=== PATIENT | male | born 1985 | race African-American/Black ===

== ENCOUNTER 2019-11-27 18:30 | Emergency (ER) | payer OTHER ==
--- NOTE | 2019-11-27 19:51 | ER Document Report ---
ED Medical Screen (RME) - General Chief Complaint: Leg Pain Stated Complaint: LEG PAIN Time Seen by Provider: 11/27/19 19:46 - HPI Notes: 11/27/19 19:50 Patient is a 34-year-old male who presents complaining of right calf pain prior to arrival. Patient states he was walking down the steps when he felt a pop in his leg and had immediate pain. He has been noticing some increased swelling. No twist injury otherwise. Denies drug allergies. Patient does not want any medicines at this time. I have treated and performed a rapid initial assessment of this patient. A comprehensive ED assessment and evaluation of the patient, analysis of test results and completion of medical decision making process will be conducted by additional ED providers. PHYSICAL EXAMINATION: GENERAL: Well-appearing, well-nourished and in no acute distress. A&Ox4. Answers questions appropriately. Right leg: Difficult to assess for asymmetry has both of his calves are fairly large. He does have trace edema bilaterally. There is tenderness with dorsiflexion to the calf as well as palpation to the area. Pulses intact distally. Physical Exam - Vital signs Vitals: Temp Pulse Resp BP Pulse Ox 98.3 F 70 18 154/97 H 97 11/27/19 18:42 11/27/19 18:42 11/27/19 18:42 11/27/19 18:42 11/27/19 18:42 Course - Vital Signs Vital signs: Temp Pulse Resp BP Pulse Ox 98.3 F 70 18 154/97 H 97 11/27/19 18:42 11/27/19 18:42 11/27/19 18:42 11/27/19 18:42 11/27/19 18:42
--- NOTE | 2019-11-27 22:03 | ER Document Report ---
HPI - HPI Patient complains to provider of: Right leg pain Time Seen by Provider: 11/27/19 21:40 Onset: This afternoon Onset/Duration: Sudden Quality of pain: Sharp Pain Level: 4 Context: Patient states that he was walking down steps and felt a sudden pop in his right leg. Patient complains of some swelling. Patient complains of tenderness with ambulation that is worse with dorsiflexion of the right foot. Patient denies any other injury from the fall. Associated Symptoms: denies: Chest pain, Nonproductive cough, Productive cough, Fever, Shortness of breath Exacerbated by: Standing, Movement, Walking Relieved by: Denies Similar symptoms previously: No Recently seen / treated by doctor: No - ROS Systems Reviewed and Negative: Yes All other systems reviewed and negative - CONSTITUTIONAL Constitutional: DENIES: Fever, Chills - CARDIOVASCULAR Cardiovascular: DENIES: Chest pain - RESPIRATORY Respiratory: DENIES: Trouble Breathing - GASTROINTESTINAL Gastrointestinal: DENIES: Nausea - MUSCULOSKELETAL Musculoskeletal: REPORTS: Extremity pain - DERM Skin Color: Normal Skin Problems: None Past Medical History - General Information source: Patient - Social History Smoking Status: Never Smoker Chew tobacco use (# tins/day): No Frequency of alcohol use: None Drug Abuse: None Occupation: dish work Lives with: Family Family History: Reviewed & Not Pertinent Patient has suicidal ideation: No Patient has homicidal ideation: No - Past Medical History Cardiac Medical History: Reports: Hx Hypertension Past Surgical History: Reports: Hx Testicular Surgery Vertical Provider Document - CONSTITUTIONAL Agree With Documented VS: Yes Exam Limitations: No Limitations General Appearance: WD/WN, No Apparent Distress - INFECTION CONTROL TRAVEL OUTSIDE OF THE [place] IN LAST 30 DAYS: No - HEENT HEENT: Atraumatic, Normocephalic - NECK Neck: Normal Inspection, Supple - RESPIRATORY Respiratory: Breath Sounds Normal, No Respiratory Distress - CARDIOVASCULAR Cardiovascular: Regular Rate, Regular Rhythm Pulses: Normal: Dorsalis pedis - MUSCULOSKELETAL/EXTREMETIES Musculoskeletal/Extremeties: MAEW, Tender - Tenderness to right posterior calf over the proximal Achilles tendon, patient with exquisite tenderness palpating the area, tenderness increases with dorsiflexion of right foot Notes: Soft muscle compartments to the calf - NEURO Level of Consciousness: Awake, Alert, Appropriate Motor/Sensory: No Motor Deficit - DERM Integumentary: Warm, Dry, No Rash Course - Re-evaluation Re-evalutation: 11/27/19 22:02 Preliminary Doppler report negative for DVT per MARY Carreon. Patient declines needing any pain medication at this time. 11/28/19 00:16 Patient's ultrasound results reviewed, no obvious tendon rupture. Patient does have symptoms suspicious for possible Achilles tendon injury. Will place patient in a posterior splint with the foot and plantar flexion and encourage orthopedic follow-up for further evaluation. - Vital Signs Vital signs: Temp Pulse Resp BP Pulse Ox 98.3 F 70 18 154/97 H 97 11/27/19 18:42 11/27/19 18:42 11/27/19 18:42 11/27/19 18:42 11/27/19 18:42 - Diagnostic Test Radiology reviewed: Reports reviewed Procedures - Immobilization Right Leg Pre-Proc Neuro Vasc Exam: Normal Immobilizer type: Short Leg Posterior Performed by: PCT Post-Proc Neuro Vasc Exam: Normal Alignment checked and good: Yes Discharge - Discharge Clinical Impression: Right leg pain, Muscle strain Condition: Stable Disposition: HOME, SELF-CARE Instructions: Achilles Tendon Rupture ([facility]), Use of Crutches ([facility]), Muscle Strain ([facility]), Splint Precautions ([facility]) Additional Instructions: Return immediately for any new or worsening symptoms Followup with your primary care provider, call tomorrow to make a followup appointment Follow-up with orthopedics for further evaluation, call Saturday for an appointment Forms: Return to Work Referrals: [facility] [Provider Group] - Follow up as needed [facility] [Provider Group] - Follow up as needed
--- NOTE | 2019-11-27 22:14 | RADIOLOGY REPORT (SQ) ---
Ultrasound right lower extremity venous duplex exam on 11/27/2019 at 9:14 PM CLINICAL INDICATION: Right calf pain COMPARISON: None FINDINGS: Multiple sonographic images are obtained from the right groin through the right calf vessels. Color flow, compression and spectral analysis are all performed. There is complete compressibility of the veins of the lower extremity. Good color flow is identified within the veins of the lower extremity. IMPRESSION: No evidence of deep venous thrombosis.
--- NOTE | 2019-11-27 23:37 | RADIOLOGY REPORT (SQ) ---
US EXTREMITY MUSCULOSKELETAL LIMITED EXAM DATE: 11/27/2019 9:59 PM [facility] TECHNICIAN HISTORY: Calf pain. Evaluate Achilles tendon COMPARISON: None. TECHNIQUE: Young-scale and color Doppler images of the right calf were obtained. FINDINGS: Limited images through the distal right calf demonstrates an intact Achilles tendon. No evidence of tendon tear. Limited images of the left Achilles tendon for comparison are also unremarkable. IMPRESSION: Achilles tendon appears grossly intact. Consider MRI if there is high concern for acute injury.
[2019-11-28 00:57] VITALS: BP 142/88
== END 2019-11-28 01:17 | disposition home or self-care (01) ==
LOC: ER 18:30
DX: M79.604 Pain in right leg (principal); M79.89 Other specified soft tissue disorders; I10 Essential (primary) hypertension
CPT/HCPCS: 76882; 93971; 99283